=== PATIENT | female | born 1945 | race Caucasian/White ===

== ENCOUNTER 2018-09-17 09:18 | Day surgery (SDC) | payer MEDICARE, BC ==
[2018-09-12 12:56] LABS: BASOPHILS % (AUTO) 0.6 % (0.0-2.0); EOSINOPHILS % (AUTO) 0.9 % (0.0-3.0); HEMATOCRIT 42.3 % (37.0-47.0); HEMOGLOBIN 13.8 G/DL (12.0-16.0); LYMPHOCYTES % (AUTO) 31.7 % (20.0-45.0); MEAN CORPUSCULAR VOLUME 87 FL (80-99); MONOCYTES % (AUTO) 7.8 % (1.0-10.0); PLATELET COUNT 198 K/UL (150-450); RED BLOOD COUNT 4.83 M/UL (4.20-5.40); RED CELL DISTRIBUTION WIDTH 12.5 % (11.6-14.8); WHITE BLOOD COUNT 5.4 K/UL (4.8-10.8)
[2018-09-12 13:12] LABS: ALANINE AMINOTRANSFERASE 35 U/L (12-78); ALBUMIN 4.2 G/DL (3.4-5.0); ALKALINE PHOSPHATASE 74 U/L (46-116); ANION GAP 12 mmol/L (5-15); ASPARTATE AMINO TRANSFERASE 24 U/L (15-37); BILIRUBIN,TOTAL 0.5 MG/DL (0.2-1.0); BLOOD UREA NITROGEN 15 mg/dL (7-18); CALCIUM 9.3 MG/DL (8.5-10.1); CARBON DIOXIDE 25 MMOL/L (21-32); CHLORIDE 104 MMOL/L (98-107); CREATININE 0.8 MG/DL (0.55-1.30); SODIUM 141 MMOL/L (136-145)
[2018-09-12 13:17] LABS: INR 0.9 (0.9-1.1)
[2018-09-12 14:05] LABS: APPEARANCE,URINE SLIGHTLY CLOUDY; BILIRUBIN, URINE NEGATIVE (NEGATIVE); GLUCOSE, URINE (UA) NEGATIVE (NEGATIVE); KETONES,URINE 1+ (NEGATIVE); LEUKOCYTE ESTERASE ,URINE 2+ (NEGATIVE); NITRITE,URINE NEGATIVE (NEGATIVE); PH,URINE 5 (4.5-8.0); PROTEIN,URINE NEGATIVE (NEGATIVE); UROBILINOGEN,URINE 1 MG/DL (0.0-1.0)
[2018-09-12 14:06] LABS: COLOR,URINE YELLOW
--- NOTE | 2018-09-12 14:42 | Diagnostic Imaging Report ---
Indication: Cough Comparison: None 2 views of the chest obtained. Findings: No definite infiltrate or pulmonary vascular congestion identified. Senescent changes noted. The heart is enlarged. The aorta is mildly enlarged consistent with atherosclerotic vascular disease. The bones are osteopenic. Impression: No acute disease
--- NOTE | 2018-09-12 15:51 | Cardiology Report ---
APPROVED REPORT EKG Measurement Heart [id number] Normal sinus rhythm Cannot rule out Anterior infarct, age undetermined Abnormal ECG
--- NOTE | 2018-09-16 22:43 | Pre-Procedure Note/Attestation ---
Pre-Procedure Note/Attestation Complete Prior to Procedure Planned Procedure: right - Removal of cataract and placement of intraocular lens, right eye Procedure Narrative: Removal of cataract and placement of intraocular lens, right eye Indications for Procedure Pre-Operative Diagnosis: Cataract, combined, right eye Attestation I attest that I discussed the nature of the procedure; its benefits; risks and complications; and alternatives (and the risks and benefits of such alternatives ), prior to the procedure, with the patient (or the patient's legal telemarketing representative). I attest that, if there was a reasonable possibility of needing a blood transfusion, the patient (or the patient's legal telemarketing representative) was given the [place] [employer] standardized written summary, pursuant to the [place] Blood Safety Act ([place] Health and Safety Code # 1645, as amended). I attest that I re-evaluated the patient just prior to the surgery and that there has been no change in the patient's H&P, except as documented below: Mario Alberto Varma MD Sep 16, 2018 22:43
[2018-09-17] VITALS (7 sets, daily range): BP systolic 127–173; BP diastolic 71–83
[~2018-09-17] VITALS: Ht 170.2 cm; Wt 90.7 kg
[~2018-09-17 09:18] MED LIST: Lidocaine 1% MPF 10mg/ml 5ml ONE; Midazolam 2mg/2ml Inj ONE; Propofol 200mg/20ml IV ONE; fentaNYL 100 mcg/2 mL IV ONE
[2018-09-17] MEDS: Tobradex Opth Susp 2.5ml RIGHT EYE SCH ×3 (10:12→10:28)
[2018-09-17] MEDS: Tropicamide 1% Opth 15ml Soln RIGHT EYE SCH ×3 (10:12→10:28)
[2018-09-17] MEDS: Vigamox Opth Soln 3ml RIGHT EYE SCH ×3 (10:12→10:28)
[2018-09-17] MEDS: Phenylephrine 10% Opth Soln 5ml RIGHT EYE SCH ×3 (10:12→10:28)
[2018-09-17] MEDS: Cyclopentolate 1% Opth Sol 2ml RIGHT EYE SCH ×3 (10:12→10:28)
[2018-09-17] MEDS: Akten 3.5% 1ml Btl RIGHT EYE SCH ×3 (10:12→10:27)
[2018-09-17] MEDS ORDERED: SIMVASTATIN20 MG ORAL (10:29)
[2018-09-17] MEDS ORDERED: ASPIRIN81 MG ORAL (10:29)
--- NOTE | 2018-09-17 12:35 | Anethesia Preoperative Eval ---
Anesthesia Pre-op PMH/ROS General Date of Evaluation: Sep 17, 2018 Anesthesiologist: Demetri ASA Score: ASA 3 Mallampati Score Class I : Soft palate, uvula, fauces, pillars visible Class II: Soft palate, uvula, fauces visible Class III: Soft palate, base of uvula visible Class IV: Only hard plate visible Mallampati Classification: Class III Surgeon: Kojo Diagnosis: Right cataract Surgical Procedure: Right cataract extraction with IOL Anesthesia History: none Family History: no anesthesia problems Allergies: Coded Allergies: SULFA (SULFONAMIDE ANTIBIOTICS) (Verified Allergy, Unknown, 09/16/18) Medications: see eMAR Patient NPO?: Yes NPO Date: Sep 16, 2018 NPO Time: 22:00 Past Medical History Cardiovascular: Reports: HTN, other - HLD; Denies: CAD, RI, valve dz, arrhythmia Pulmonary: Denies: asthma, COPD, MADONNA, other Gastrointestinal/Genitourinary: Denies: GERD, CRI, ESRD, other Neurologic/Psychiatric: Denies: dementia, CVA, depression/anxiety, TIA, other Endocrine: Denies: DM, hypothyroidism, steroids, other HEENT: Reports: cataract (R); Denies: cataract (L), glaucoma, PECHANGA (L), PECHANGA (R), other Hematology/Immune: Reports: other - rectal cancer; Denies: anemia, DVT, bleeding disorder Musculoskeletal/Integumentary: Denies: OA, RA, DJD, DDD, edema, other Other: obesity PSxH Narrative: T&A, lap annel, partial hysterectomy Anesthesia Pre-op Phys. Exam Physician Exam Last Vital Signs Date Time Temp Pulse Resp B/P (MAP) Pulse Ox O2 Delivery O2 Flow Rate FiO2 09/17/18 10:24 Room Air 09/17/18 10:16 97.9 65 18 173/83 97 Constitutional: NAD Cardiovascular: RRR Respiratory: CTA Airway Exam Mallampati Score: Class III MO: full ROM: full Teeth: intact Anesthesia Pre-op A/P Labs see chart Studies Pre-op Studies: EKG - sr Risk Assessment & Plan Assessment: ASA III Plan: MAC Status Change Before Surgery: No Pre-Antibiotics Drug: N/A Lindsey Armando MD Sep 17, 2018 12:35
[2018-09-17] MEDS ORDERED: Dexamethasone 4mg/ml vial ONE (12:47)
[2018-09-17] MEDS ORDERED: EPINEPHrine 1mg/1ml Amp ONE (12:47)
[2018-09-17] MEDS ORDERED: Pred Forte 1% Opth Susp 1ml ONE (12:47)
[2018-09-17] MEDS ORDERED: Maxitrol Opth Oint 3.5gm ONE (12:47)
[2018-09-17] MEDS ORDERED: Carbachol 0.01% Op Soln 1.5ml vial ONE (12:47)
[2018-09-17] MEDS ORDERED: Lidocaine 1% MPF 10mg/ml 5ml ONE (12:47)
[2018-09-17] MEDS ORDERED: Tetracaine 0.5% Opth 4ml Soln ONE (12:48)
[2018-09-17] MEDS ORDERED: BSS 15ml BTL ONE (12:48)
[2018-09-17] MEDS ORDERED: Povidone-Iodine 5% opth solution ONE (12:48)
[2018-09-17] MEDS ORDERED: BSS 500ml btl ONE (12:48)
[2018-09-17] MEDS ORDERED: DiphenhydrAMINE 50mg/ml Inj ONE (12:52)
[2018-09-17] MEDS ORDERED: Midazolam 2mg/2ml Inj ONE (12:52)
[2018-09-17] MEDS ORDERED: fentaNYL 100 mcg/2 mL IV ONE (12:54)
[2018-09-17] MEDS ORDERED: LR 1000ml ONE (13:00)
[2018-09-17] MEDS ORDERED: Sterile Water Irrig 1000ml IRRIG ONE (13:00)
[2018-09-17] MEDS ORDERED: NS Irrig 1000ml ONE (13:00)
[2018-09-17] MEDS ORDERED: LR 1000ml 1,000 ML IVLG SCH (13:25)
[2018-09-17] MEDS ORDERED: DiphenhydrAMINE 50mg/ml Inj IVP PRN (13:30)
--- NOTE | 2018-09-17 13:56 | Discharge Instructions ---
Discharge Instructions Discharge Instructions Follow Up Orders Continue preop eye drops Wear shield at all times except when placing eye drops Followup tomorrow in Dr Varma's office For Congestive Heart Failure Reminder Report to your physician any weight gain of 5 pounds or more in one week. Mario Alberto Varma MD Sep 17, 2018 13:56
--- NOTE | 2018-09-17 13:58 | Immediate Post-Op Evaluation ---
Immediate Post-Op Evalulation Immediate Post-Op Evalulation Procedure: Right cataract extraction with IOL Date of Evaluation: Sep 17, 2018 Time of Evaluation: 14:00 IV Fluids: 300 Blood Products: 0 Estimated Blood Loss: 0 Urinary Output: 0 Blood Pressure Systolic: 145 Blood Pressure Diastolic: 80 Pulse Rate: 70 Respiratory Rate: 16 O2 Sat by Pulse Oximetry: 96 Temperature (Fahrenheit): 97.2 Pain Score (1-10): 0 Nausea: No Vomiting: No Complications 0 Patient Status: awake, reacts, patent, none Hydration Status: adequate Drug: N/A Lindsey Armando MD Sep 17, 2018 13:58
--- NOTE | 2018-09-17 13:58 | 48 Hour Post Anesthesia Eval ---
Post Anesthesia Evaluation Procedure: Right cataract extraction with IOL Date of Evaluation: Sep 17, 2018 Airway: patent Nausea: No Vomiting: No Pain Intensity: 0 Hydration Status: adequate Cardiopulmonary Status: at baseline Mental Status/LOC: patient returned to baseline Post-Anesthesia Complications: 0 Follow-up care needed: ready to discharge Lindsey Armando MD Sep 17, 2018 13:58
--- NOTE | 2018-09-17 13:59 | Brief Operative Note ---
Immediate Post Operative Note Operative Note Pre-op Diagnosis: Cataract, combined, right eye Procedure: Phaco PC IOL, OD Post-op Diagnosis: same as pre-op Surgeon: Jewel Varma MD MS Interior Block Wirer: none Anesthesiologist: Dr Bishop Anesthesia: local, MAC Specimen: none Complications: none Fluids: see chart Implant(s) used?: Yes - bautista [id number] 16.5 Mario Alberto Varma MD Sep 17, 2018 13:59
--- NOTE | 2018-09-24 11:45 | Operative Note - Dictated ---
DATE OF OPERATION: 09/17/2018 SURGEON: Mario Alberto Varma M.D. FASHION COORDINATOR SURGEON: None. ANESTHESIOLOGIST: Lindsey Bishop M.D. ANESTHESIA: Local/standby/monitored anesthesia care. PREOPERATIVE DIAGNOSIS: Cataract, combined, right eye. POSTOPERATIVE DIAGNOSIS: Cataract, combined, right eye. PROCEDURES: 1. Phacoemulsification cataract, right eye. 2. Placement of posterior chamber intraocular lens, right eye (model Dawson [id number], power 16.5). SPECIMENS: None. COMPLICATIONS: None. INDICATIONS FOR SURGERY: The patient has had the painless progressive decrease in visual acuity in the right eye secondary to cataract. The patient understands the risks of surgery including infection, bleeding, need for further surgery, loss of vision, no improvement in vision, loss of the eye, loss of life, glaucoma, retinal detachment, understands these risks and elects to proceed with surgery. FINDINGS: The patient had a +2 to 3 nuclear sclerotic cataract as well as +2 cortical cataract. OPERATIVE NOTE: After informed consent was obtained, the patient was brought into the operating room and placed in supine position. Cardiac and respiratory monitors were attached. A time-out was performed and all criteria were met and everyone in the room agreed. The right eye was then draped and prepped in sterile manner for ocular surgery. A lid speculum was placed in the eye. A 1% lidocaine preservative-free was injected at the 9:30 limbus. A conjunctival peritomy from 9 o'clock to 10 o'clock was made and dissected posteriorly. Hemostasis was maintained with bipolar cautery. A 2.6 mm limbal incision was made centered at approximately 9:30 and dissected anteriorly. A paracentesis was made at approximately 12:30 and Shugarcaine was injected into the anterior chamber followed by Healon. The anterior chamber was then entered using a 2.6 mm keratome through the limbal incision. An anterior capsulorrhexis was then performed. Hydrodissection and hydrodelineation of the lens was then performed. The lens was then phacoemulsified using divide and conquer four-quadrant technique. Residual cortical material was then aspirated. Healon was injected into the anterior chamber and capsular bag. The lens was taken from its package, placed into the cartridge and the tip of the cartridge was placed through the limbal incision and the lens was injected into the capsular bag and centered nicely with a Sinskey hook. The lens was centered the 9 o'clock to the 3 o'clock axis. Healon was aspirated from the anterior chamber and capsular bag. The optic and both haptics were in the capsular bag. One 10-0 nylon interrupted suture was then placed through the limbal incision and the knot was rotated and buried. Care was taken during the entire procedure not to touch the endothelium. The wounds were checked and found to be watertight. The conjunctiva was then closed with forceps cautery. The lid speculum and drapes were removed from the eye and drops of Pred Forte and Vigamox were applied to the eye followed by Maxitrol ointment and a shield. The patient tolerated the procedure well and left the operating room in awake and stable condition. Mario Alberto Varma M.D. DR: NAS JOB#: [id number] CC:
== END 2018-09-17 15:20 | disposition home or self-care (01) ==
LOC: SUR 09:18
DX: H25.11 Age-related nuclear cataract, right eye (principal); H25.011 Cortical age-related cataract, right eye; Z88.2 Allergy status to sulfonamides; I10 Essential (primary) hypertension; E78.5 Hyperlipidemia, unspecified; Z90.49 Acquired absence of other specified parts of digestive tract; Z90.710 Acquired absence of both cervix and uterus
CPT/HCPCS: 36415; 66984; 71046; 80053; 81001; 85025; 85610; 85730; 93005; J0171; J1100; J1200; J2250; J3010; V2632; 94003; 94150; J2405